=== PATIENT | male | born 1955 | race Caucasian/White ===

== ENCOUNTER 2017-01-04 09:44 | Day surgery (SDC) | payer BC ==
[2017-01-03 09:51] VITALS: BMI 32.1
[~2017-01-04 09:44] MED LIST: LACTATED RINGERS 1,000 ML IV SCH; LIDOCAINE 1% 20 ML VIAL (10MG/ML) FOR IV START INTRADERMA PRN
[2017-01-04] MEDS ORDERED: ONDANSETRON 4 MG/2 ML VIAL IVP STA (11:16)
[2017-01-04 11:28] VITALS: RESP 16; TEMP 97.9
[2017-01-04] MEDS ORDERED: LIDOCAINE 1% INJ 10MG/ML (20 ML MDV) ONE (11:33)
[2017-01-04] MEDS ORDERED: PROPOFOL 10 MG/ML 20 ML VIAL IV ONE (11:33)
--- NOTE | 2017-01-04 12:14 | P.PCN ---
Date of Procedure: 01/04/17 Preoperative Diagnosis: Postoperative Diagnosis: Procedure(s) Performed: Procedure: Total colonoscopy. Preoperative diagnosis: Positive Cologuard. Postoperative diagnosis: Low-grade internal hemorrhoids with no bleeding at the time of this exam. Preparation: HalfLytely prep. Sedation: Was provided by anesthesia. Brief clinical history: The patient is a 61-year-old male who is referred for this evaluation because of finding positive cologuard screening test. The patient denies any abdominal symptoms, change in bowel habits or overt bleeding. No family history of colon cancer. Last colonoscopy around 8 years ago. Procedure: With the patient on his left lateral decubitus position and after informed consent and adequate sedation, the perianal area was inspected and it did not show any fissures or fistulas. There were no masses felt on digital rectal examination. The Olympus CFQ 160L video colonoscope was then inserted in the rectum in the usual fashion and advanced to the cecum. The mucosa appeared healthy. No polyps or tumors were seen or any obvious diverticular disease or bleeding. I retroflexed endoscope in the rectum before the endoscope was withdrawn. Low-grade internal hemorrhoids were noted but there was no bleeding. The patient tolerated the procedure well. Plan: The patient was reassured. He will follow up with you as planned. In the absence of upper GI complaints or anemia, I did not recommend upper GI workup for the workup of his Hemoccult positive stools. Implants: Indications for Procedure: Operative Findings: Description of Procedure:
[2017-01-04 12:20] VITALS: BP 133/81; PULSE 63
== END 2017-01-04 12:37 | disposition home or self-care (01) ==
LOC: ORWHC2ENDO 09:44
DX: K64.8 Other hemorrhoids (principal); K92.1 Melena; Z79.899 Other long term (current) drug therapy
CPT/HCPCS: 45378; J2405; J2001; J2704

== ENCOUNTER → 2019-08-27 | Outpatient (CLI) | payer BC ==
--- NOTE | 2019-08-27 12:52 | CONS ---
CONSULTATION DATE OF SERVICE: 08/27/2019 A 64-year-old gentleman who has been evaluated in the [facility] for treatment of obstructive and central sleep apnea-hypopnea syndrome. HISTORY OF PRESENT ILLNESS/SLEEP-WAKE EVALUATION: Patient's usual sleep schedule from 11 p.m. to 5 a.m. on working days and from 11 p.m. until 1:00 pm on weekend or non-working days. He does have problems with falling asleep, has TV set in bedroom. He sleeps on the back position with his , and according to her, he has loud snoring, witnessed episodes of stopped breathing during sleep, restless leg symptoms, sleep talking, sweating. Patient wakes up from sleep 3 times with nocturia. In the morning, patient wakes up tired, has difficulties to pay attention, falling asleep during the day. [place] Sleepiness Scale significantly increased to 17. He worries about his sleep, has problems with memory, concentration, irritability, depression and anxiety. On 06/15/2019, patient had home sleep apnea test in another institution, which showed that he has apnea-hypopnea index 36.9, which is severe range with apnea-hypopnea index related to central apneas, 22.0 with oxygen desaturation to 82%. PAST MEDICAL HISTORY: Positive for anxiety, depression, low back problems, knee problems, questionable history of rheumatoid arthritis. PAST SURGICAL HISTORY: Arthroscopic left knee surgery. Cholecystectomy. MEDICATIONS: Amitriptyline, oxycodone, desvenlafaxine. SOCIAL HISTORY: Positive for smoking in the past for about 25 pack years, quit about 20 years ago. Alcohol consumption none. FAMILY HISTORY: History of cardiac arrhythmia for both parents. REVIEW OF SYSTEMS: Multiple awakenings from sleep, sleepiness during the day. PHYSICAL EXAM: gentleman without distress, BP 123/83, HR 80, RR 15, height 6 and 2, weight 271.6. Body mass index 34.7, temperature 97.7, oxygen saturation at room air 96%/ OROPHARYNX: Extremely low position of soft palate, Mallampati IV, wide neck 18-1/4 inches in circumference. HEENT: PERRLA, EOMI, evaluation of oropharynx showed tongue protrudes midline. NECK: Supple, no JVD. Thyroid is not palpable. LUNGS: Clear to percussion and to auscultation. Good air exchange. No wheezing or rhonchi. HEART: S1, S2 regular. No murmurs, gallops, or rubs. ABDOMEN: Soft and nontender. Bowel sounds are present. No organomegaly appreciated. EXTREMITIES: No clubbing or cyanosis. WEAVER HAND LOOM: Awake, alert, and oriented X3. Cranial nerves 2 to 7 intact. There is no fasciculation or atrophy. noted. No focal deficits observed. IMPRESSION: 1. Loud snoring, witnessed episodes of stopped breathing during the sleep, extremely low position of soft palate, Mallampati 4 multiple awakenings from sleep, excessive daytime sleepiness. [place] Sleepiness Scale increased to 17. Home sleep apnea test showed severe sleep apnea with high amount of central sleep apnea events. Most of a documented events related to central sleep apnea. 2. Back pain. The patient is on treatment with oxycodone for long period of time. 3. History of anxiety. 4. History of depression. 5. History of knee problems. 6. Questionable history of rheumatoid arthritis. 7. Status post left knee arthroscopic surgery. 8. Status post cholecystectomy. PLAN: 1. CPAP titration. If necessary usage of BiPAP or Auto Servo ventilator for central apneas. 2. To get results of echocardiogram for ejection fraction. The patient will need Auto Servo ventilator. 3. Losing weight. 4. Sleep hygiene with regular time in bed for at least 7-1/2 to 8 hours. 5. Precautions related to driving. No driving if feeling sleepiness. Thank you very much for referring this patient for consultation. Sincerely, Sharan Vallecillo MD, PhD, FAASM Diplomat of [employer] [facility] [place] MMODL / IJN: [id number] /
== END | disposition home or self-care (01) ==
LOC: SLEEP 11:45
PROVIDERS: ATTEND Internal Medicine
DX: G47.31 Primary central sleep apnea (principal); M54.9 Dorsalgia, unspecified; G25.81 Restless legs syndrome; F41.9 Anxiety disorder, unspecified; F32.9 Major depressive disorder, single episode, unspecified; Z87.39 Personal history of other diseases of the musculoskeletal system and connective tissue; Z96.652 Presence of left artificial knee joint; Z90.49 Acquired absence of other specified parts of digestive tract; Z87.891 Personal history of nicotine dependence; Z79.891 Long term (current) use of opiate analgesic; Z79.899 Other long term (current) drug therapy
CPT/HCPCS: 99211

== ENCOUNTER → 2019-09-25 | Outpatient (CLI) | payer BC ==
--- NOTE | 2019-09-25 11:01 | ECHOF ---
Referral Reason:G47.39 MICHEAL Central Sleep Apnea MEASUREMENTS -------- HEIGHT: 182.9 cm WEIGHT: 117.9 kg BP: IVSd: 1.3 cm (0.6 - 1.1) LVIDd: 4.7 cm (3.9 - 5.3) LVPWd: 1.4 cm (0.6 - 1.1) IVSs: 1.9 cm LVIDs: 2.6 cm LVPWs: 2.3 cm RVIDd: 2.6 cm (< 3.3) LAESV Index (A-L): 28.06 ml/m Ao Diam: 3.6 cm (2.0 - 3.7) LA Diam: 3.2 cm (2.7 - 3.8) AV Cusp: 2.6 cm (1.5 - 2.6) EPSS: 0.4 cm MV E Manolo: 0.71 m/s MV DecT: 207 ms MV A Manolo: 1.00 m/s MV E/A Ratio: 0.70 RAP: 5.00 mmHg RVSP: 18.45 mmHg MV EF SLOPE: 87.03 mm/s (70 - 150) MV EXCURSION: 23.93 mm (> 18.000) FINDINGS -------- Sinus rhythm. This was a technically good study. The left ventricular size is normal. There is mild concentric left ventricular hypertrophy. Overa ll left ventricular systolic function is normal with, an EF between 55 - 60 %. The diastolic fillin g pattern is normal for the age of the patient 10.71. The right ventricle is normal in size. The left atrial size is normal. Normal LA size by volume 22+/-6 ml/m2. The right atrial size is normal. The aortic valve is trileaflet and appears structurally normal. The mitral valve is normal. No mitral regurgitation. The tricuspid valve appears structurally normal. Trace tricuspid regurgitation present. Right farhana tricular systolic pressure is normal at < 35 mmHg. There is no pulmonic regurgitation present. The aortic root size is normal. Normal inferior vena cava with normal inspiratory collapse consistent with estimated right atrial pre ssure of 5 mmHg. There is no pericardial effusion. CONCLUSIONS -------- 1. Sinus rhythm. 2. This was a technically good study. 3. The left ventricular size is normal. 4. There is mild concentric left ventricular hypertrophy. 5. Overall left ventricular systolic function is normal with, an EF between 55 - 60 %. 6. The diastolic filling pattern is normal for the age of the patient 10.71 7. The right ventricle is normal in size. 8. The left atrial size is normal. 9. Normal LA size by volume 22+/-6 ml/m2. 10. The right atrial size is normal. 11. The aortic valve is trileaflet and appears structurally normal. 12. The mitral valve is normal. 13. No mitral regurgitation. 14. The tricuspid valve appears structurally normal. 15. Trace tricuspid regurgitation present. 16. Right ventricular systolic pressure is normal at < 35 mmHg. 17. There is no pulmonic regurgitation present. 18. The aortic root size is normal. 19. Normal inferior vena cava with normal inspiratory collapse consistent with estimated right atrial pressure of 5 mmHg. 20. There is no pericardial effusion. CUPROUS CHLORIDE OPERATOR: Zonia Tian RDCS
== END | disposition home or self-care (01) ==
LOC: RADECHMAIN 08:18
PROVIDERS: ATTEND Internal Medicine
DX: G47.33 Obstructive sleep apnea (adult) (pediatric) (principal); G47.31 Primary central sleep apnea
CPT/HCPCS: 93306

== ENCOUNTER → 2020-09-16 | Outpatient (CLI) | payer MEDICARE ==
--- NOTE | 2020-09-16 21:06 | US ---
EXAMINATION TYPE: US kidneys/renal and bladder DATE OF EXAM: 09/16/2020 COMPARISON: NONE CLINICAL HISTORY: R82.89 Other abnormal findings on cytological and. History of renal stones and cyst oscopies per patient. EXAM MEASUREMENTS: Right Kidney: 13.0 x 5.0 x 5.7 cm Left Kidney: 11.2 x 6.0 x 5.4 cm Post Void Residual Volume: 47.6 mL Right Kidney: couple of cortical cysts with larger cyst at superior pole = 1.5 x 1.9 x 2.1cm and sma ller cyst at inferior pole = 1.6 x 1.6 x 1.5cm; medullary sponge kidney appearance Left Kidney: multiple cortical cysts with largest seen mid lateral cortex = 1..3 x 1.3 x 1.4cm Bladder: wnl Bilateral Jets seen: yes Normal Post Void Residual: yes, less than 50.0ml. IMPRESSION: 1. Cortical renal cysts bilaterally.
== END | disposition home or self-care (01) ==
LOC: RADUSWWP 13:34
PROVIDERS: ATTEND Internal Medicine
DX: N28.1 Cyst of kidney, acquired (principal)
CPT/HCPCS: 76770